=== PATIENT | male | born 1955 | race Caucasian/White ===

== ENCOUNTER 2018-01-05 11:57 | Emergency (ER) | payer OTHER ==
[2018-01-05 12:33] LABS: ADD MAN DIFF? NO
[2018-01-05 12:34] LABS: BASOPHILS % 0.4 % (0.0-2.0); EOSINOPHILS # 0.2 10^3/ul (0.0-0.5); EOSINOPHILS % 2.5 % (0.0-7.0); HEMATOCRIT 49.9 % (42.0-52.0); HEMOGLOBIN 16.1 g/dl (14.0-18.0); LYMPHOCYTES # 1.9 10^3/ul (0.8-2.9); LYMPHOCYTES % 21.1 % (15.0-51.0); MEAN CORPUSCULAR HEMOGLOBIN 25.7 pg (29.0-33.0); MEAN CORPUSCULAR HGB CONC 32.3 g/dl (32.0-37.0); MEAN CORPUSCULAR VOLUME 79.7 fl (82.0-101.0); MEAN PLATELET VOLUME 9.7 fl (7.4-10.4); MONOCYTE # 0.8 10^3/ul (0.3-0.9); MONOCYTES % 8.5 % (0.0-11.0); NEUTROPHILS % 67.3 % (39.0-77.0); PLATELET COUNT 183 10^3/UL (140-415); RED BLOOD COUNT 6.26 10^6/ul (4.70-6.10); RED CELL DISTRIBUTION WIDTH 13.7 % (11.5-14.5)
[2018-01-05 12:34] LABS: WHITE BLOOD COUNT 8.9 10^3/ul (4.8-10.8)
[2018-01-05] MEDS: ONDANSETRON 4 MG INJ IV (12:44)
[2018-01-05] MEDS: SOD CHLORIDE 0.9% 1,000 ML IV (12:44)
[2018-01-05] MEDS: morphine 4 MG/ML VIAL IV (12:44)
[2018-01-05 12:52] LABS: INR 0.99; PROTIME 13.2 Sec (11.9-14.9)
[2018-01-05 12:55] LABS: ANION GAP 11 (8-16); CARBON DIOXIDE 30 mmol/L (21-31); CHLORIDE 102 mmol/L (97-110); POTASSIUM 4.3 mmol/L (3.5-5.1); SODIUM 139 mmol/L (135-144)
[2018-01-05 12:58] LABS: BLOOD UREA NITROGEN 13 mg/dl (7-20); CALCIUM 8.8 mg/dl (8.4-10.2); CREATININE 0.97 mg/dl (0.61-1.24); GLUCOSE 113 mg/dl (70-220)
[2018-01-05 12:58] LABS: LACTIC ACID 0.9 mmol/L (0.5-2.0)
== END 2018-01-05 14:35 | disposition home or self-care (01) ==
LOC: E/R 11:57
DX: K42.9 Umbilical hernia without obstruction or gangrene (principal); F17.210 Nicotine dependence, cigarettes, uncomplicated
CPT/HCPCS: 36415; 74176; 80048; 83605; 85025; 85610; 85730; 96374; 96375; 99285-25

== ENCOUNTER 2018-01-23 06:56 | Day surgery (SDC) | payer OTHER ==
[2018-01-23] MEDS ORDERED: PROPOFOL 20 ML ×3 (08:33→09:22)
== END 2018-01-23 10:25 | disposition home or self-care (01) ==
LOC: GIL 06:56
DX: Z12.11 Encounter for screening for malignant neoplasm of colon (principal); D12.0 Benign neoplasm of cecum; D12.3 Benign neoplasm of transverse colon; K64.4 Residual hemorrhoidal skin tags; K64.8 Other hemorrhoids; E66.9 Obesity, unspecified; Z68.34 Body mass index [BMI] 34.0-34.9, adult
CPT/HCPCS: 45380; 88305